=== PATIENT | male | born 1950 | race Caucasian/White ===

== ENCOUNTER 2017-06-01 00:21 | Emergency (ER) | payer OTHER, MEDICARE ==
[2017-06-01] MEDS ORDERED: LET GEL TOPICAL 1 EA SYR TP ONE ×2 (01:04→01:55)
--- NOTE | 2017-06-01 01:05 | EDPHY ---
H & P Stated Complaint: fall, Time Seen by Provider: 06/01/17 00:53 HPI/ROS: Chief Complaint: Fall HPI: 66-year-old male was on a roof top deck with no really when he accidentally stepped off, falling approximately 10 feet. Patient states he landed on his right hand side. He did not have a loss of consciousness. Is complaining of pain in the right side of his chest right upper abdomen. Has had some mild shortness of breath. No numbness or tingling. No neck pain. Also is complaining of an abrasion on his right arm. No headache. No neck pain. Patient does admit to drinking a couple of drinks tonight. ROS: 10 point Review of Systems is negative except as noted in the HPI. Family History: non-contributory Physical Exam: Gen: Awake, Alert, Airway Intact HEENT: Head: Small abrasion lateral to his right eyebrow. No bony tenderness or step-offs Eyes: PERRLA, EOMI Ears: No hemotympanum Nose: No epistaxis Mouth: Normal dentition, Airway patent Face: No deformity Neck: non-tender, no stepoff, Full ROM without pain Chest: He has tenderness in the right anterior axillary ribs, lungs CTA Heart: normal heart tones Abd: Has tenderness in the right upper quadrant, atraumatic Pelvis: non-tender, stable to AP and Lateral compression Back: atraumatic, no midline tenderness Ext: atramatic, full ROM Skin: no rash Neuro: CN II-XII intact, Strength 5/5 in all extremities, sensation intact in all extremities - Personal History Current Tetanus/Diphtheria Vaccine: Yes Current Tetanus Diphtheria and Acellular Pertussis (TDAP): Yes - Medical/Surgical History Hx Asthma: No Hx Chronic Respiratory Disease: No Hx Diabetes: No Hx Cardiac Disease: No Hx Renal Disease: No Hx Cirrhosis: No Hx Alcoholism: No Hx HIV/AIDS: No Hx Splenectomy or Spleen Trauma: No Other PMH: htn, - Social History Smoking Status: Never smoked Constitutional: Initial Vital Signs Temperature (C) 36.5 C 06/01/17 00:28 Heart Rate 74 06/01/17 00:28 Respiratory Rate 20 06/01/17 00:28 Blood Pressure 123/73 H 06/01/17 00:28 O2 Sat (%) 91 L 06/01/17 00:28 O2 Delivery Mode Room Air Allergies/Adverse Reactions: povidone-iodine [From Betadine] Allergy (Verified 03/07/10 16:30) soap [From Betadine] Allergy (Verified 03/07/10 16:30) Home Medications: Medication Instructions Recorded Hydrocodone/Acetaminophen 1 - 2 each PO Q4-6PRN PRN #10 06/01/17 [Hydrocodon-Acetaminophen 5-325] tablet Lisinopril 06/01/17 Prednisone 06/01/17 Medical Decision Making - Diagnostics Imaging Results: CT scan of the chest shows a minimally displaced right 8th rib fracture in the mid axillary line. There is no pneumothorax or pulmonary contusion or infiltrate. Interpreted by Dr. Christie. CT scan of the abdomen pelvis shows a right L1 transverse process fracture. There are no compression fractures. There is no solid organ injury. There is some sigmoid diverticula. There is a 1.3 cm mass on the lower pole of the right kidney concerning for possible renal carcinoma. Studies interpreted by Dr. Christie. ED Course/Re-evaluation: 66-year-old male status post fall off roof. He has an abrasion to his right arm. He has a isolated rib fracture with out underlying lung injury. He also has a transverse process fracture. There is an incidental finding of a renal mass. He will be referred to Urology and Oncology for this. I will send him home with analgesia for his rib fracture. He will return for worsening. - Data Points Laboratory Results: Laboratory Results 06/01/17 01:07 06/01/17 01:07 06/01/17 06/01/17 06/01/17 01:07 01:07 01:03 WBC 11.60 10^3/uL H 10^3/uL (3.80-9.50) RBC 4.30 10^6/uL L 10^6/uL (4.40-6.38) Hgb 14.9 g/dL g/dL (13.7-17.5) POC Hgb 16.3 gm/dL gm/dL (13.7-17.5) Hct 43.1 % % (40.0-51.0) POC Hct 48 % % (40-51) MCV 100.2 fL H fL (81.5-99.8) MCH 34.7 pg H pg (27.9-34.1) MCHC 34.6 g/dL g/dL (32.4-36.7) RDW 14.0 % % (11.5-15.2) Plt Count 177 10^3/uL 10^3/uL (150-400) MPV 10.2 fL fL (8.7-11.7) Neut % (Auto) 74.6 % H % (39.3-74.2) Lymph % (Auto) 14.7 % L % (15.0-45.0) [place] % (Auto) 7.8 % % (4.5-13.0) Eos % (Auto) 0.6 % % (0.6-7.6) Baso % (Auto) 0.5 % % (0.3-1.7) Nucleat RBC Rel Count 0.3 % H % (0.0-0.2) Absolute Neuts (auto) 8.65 10^3/uL H 10^3/uL (1.70-6.50) Absolute Lymphs (auto) 1.71 10^3/uL 10^3/uL (1.00-3.00) Absolute Monos (auto) 0.90 10^3/uL H 10^3/uL (0.30-0.80) Absolute Eos (auto) 0.07 10^3/uL 10^3/uL (0.03-0.40) Absolute Basos (auto) 0.06 10^3/uL 10^3/uL (0.02-0.10) Absolute Nucleated RBC 0.03 10^3/uL H 10^3/uL (0-0.01) Immature Gran % 1.8 % H % (0.0-1.1) Immature Gran # 0.21 10^3/uL H 10^3/uL (0.00-0.10) POC Sodium 140 mEq/L mEq/L (134-144) Sodium 140 mEq/L mEq/L (134-144) POC Potassium 3.6 mEq/L mEq/L (3.3-5.0) Potassium 4.1 mEq/L mEq/L (3.5-5.2) POC Chloride 104 mEq/L mEq/L (97-110) Chloride 103 mEq/L mEq/L (97-110) Carbon Dioxide 21 mEq/l L mEq/l (22-31) Anion Gap 16 mEq/L mEq/L (8-16) POC BUN 33 mg/dL H mg/dL (7-23) BUN 32 mg/dL H mg/dL (7-23) Creatinine 0.9 mg/dL mg/dL (0.7-1.3) POC Creatinine 1.3 mg/dL mg/dL (0.7-1.3) Estimated GFR > 60 Glucose 115 mg/dL H mg/dL (70-100) POC Glucose 120 mg/dL H mg/dL (70-100) Calcium 9.2 mg/dL mg/dL (8.5-10.4) Point of Care Test Results: 06/01/17 01:03 POC Sodium 140 POC Potassium 3.6 POC Chloride 104 POC BUN 33 H POC Creatinine 1.3 POC Glucose 120 H Departure - Departure Disposition: Home, Routine, Self-Care Clinical Impression: Rib fracture, Lumbar transverse process fracture, Renal mass Condition: Good Instructions: Rib Fracture (ED), Thoracolumbar Fracture (ED), Hydrocodone/ Acetaminophen (By mouth) Additional Instructions: You may take hydrocodone as needed for pain. It is important that you keep her pain under control so that you do not developed a pneumonia. Do not lay in bed and rest, it is important that he remain active to prevent developing a pneumonia. There is a 1.3 cm mass on your right kidney which is concerning. He it is important to follow up with Oncology and with Urology. Call on Saturday for the next available appointment. Return to the emergency department for increasing headache, confusion, nausea, vomiting, numbness, weakness, shortness of breath, fevers, chills, cough, or any other concerns. Referrals: Keo Bermudez MD [Primary Care Provider] - As per Instructions Delgado Richardson MD [Medical Doctor] - As per Instructions Trudy Diane MD [Medical Doctor] - As per Instructions Prescriptions: Hydrocodone/Acetaminophen [Hydrocodon-Acetaminophen 5-325] 1 - 2 each PO Q4- 6PRN PRN #10 tablet PRN Reason: Pain, Severe
[2017-06-01] MEDS ORDERED: IOPAMIDOL (ISOVUE-300) 100 ML BTL ONE (01:19)
[2017-06-01 01:21] LABS: % IMMATURE GRANULYOCYTES 1.8 % (0.0-1.1); ABSOLUTE IMMATURE GRANULOCYTES 0.21 10^3/uL (0.00-0.10); ABSOLUTE NRBC COUNT 0.03 10^3/uL (0-0.01); ADD DIFF? NO; ADD MORPH? NO; ADD SCAN? NO; ATYPICAL LYMPHOCYTE FLAG 0 (0-99); FRAGMENT RBC FLAG 0 (0-99); HEMATOCRIT 43.1 % (40.0-51.0); HEMOGLOBIN 14.9 g/dL (13.7-17.5); LEFT SHIFT FLG 10 (0-99); LIPEMIA HEMOLYSIS FLAG 90 (0-99); MEAN CELL HEMOGLOBIN 34.7 pg (27.9-34.1); MEAN CELL HEMOGLOBIN CONCENTR. 34.6 g/dL (32.4-36.7); MEAN CELL VOLUME 100.2 fL (81.5-99.8); MEAN PLATELET VOLUME 10.2 fL (8.7-11.7); NRBC-AUTO% 0.3 % (0.0-0.2); PLATELET CLUMPS FLAG 0 (0-99); PLATELET COUNT 177 10^3/uL (150-400)
[2017-06-01 01:34] LABS: ANION GAP 16 mEq/L (8-16); CALCIUM 9.2 mg/dL (8.5-10.4); CARBON DIOXIDE 21 mEq/l (22-31); CHLORIDE 103 mEq/L (97-110); CREATININE 0.9 mg/dL (0.7-1.3); GLOMERULAR FILTRATION RATE > 60; GLUCOSE 115 mg/dL (70-100); POTASSIUM 4.1 mEq/L (3.5-5.2); SODIUM 140 mEq/L (134-144)
[2017-06-01] MEDS ORDERED: HYDROCOD/APAP 5/325 PREPACK#6 BTL TAKEHOME ONE (02:24)
[2017-06-01 02:47] VITALS: BP 118/64; PULSE 76; RESP 16; TEMP 98.1; O2SAT 97
== END 2017-06-01 02:47 | disposition home or self-care (01) ==
DX: S22.31XA Fracture of one rib, right side, initial encounter for closed fracture (principal); S32.019A Unspecified fracture of first lumbar vertebra, initial encounter for closed fracture; N28.89 Other specified disorders of kidney and ureter; I10 Essential (primary) hypertension; W17.89XA Other fall from one level to another, initial encounter; Y92.89 Other specified places as the place of occurrence of the external cause
CPT/HCPCS: 71010; 71260; 74177; 99285; Q9967; 82947-QW

== ENCOUNTER → 2017-07-12 | Outpatient (CLI) | payer OTHER, MEDICARE | LOC: FIMAGING 07:46 | PROVIDERS: ATTEND Family Medicine Sports Medicine | DX: S32.010A Wedge compression fracture of first lumbar vertebra, initial encounter for closed fracture (principal); M43.07 Spondylolysis, lumbosacral region; M99.73 Connective tissue and disc stenosis of intervertebral foramina of lumbar region; M46.47 Discitis, unspecified, lumbosacral region ==

== ENCOUNTER → 2018-01-17 | Outpatient (CLI) | payer OTHER, MEDICARE ==
[~2018-01-17] MED LIST: IOPAMIDOL (ISOVUE-300) 150 ML BTL ONE
== END ==
LOC: FIMAGING 07:35
PROVIDERS: ATTEND Specialist
DX: R93.421 Abnormal radiologic findings on diagnostic imaging of right kidney (principal); R93.49 Abnormal radiologic findings on diagnostic imaging of other urinary organs; N40.0 Benign prostatic hyperplasia without lower urinary tract symptoms; K42.0 Umbilical hernia with obstruction, without gangrene
CPT/HCPCS: 74178; Q9967; 82565-PO

== ENCOUNTER → 2018-08-08 | Outpatient (CLI) | payer OTHER, MEDICARE | LOC: BMCIMAGING 08:08 | PROVIDERS: ATTEND Specialist | DX: N28.1 Cyst of kidney, acquired (principal) ==

== ENCOUNTER → 2018-12-22 | Outpatient (CLI) | payer OTHER, MEDICARE | LOC: FIMAGING 15:39 ==

== ENCOUNTER → 2018-12-29 | Outpatient (CLI) | payer OTHER, MEDICARE | LOC: BHFA 10:00 ==